=== PATIENT | male | born 1975 | race Caucasian/White ===

== ENCOUNTER 2024-08-05 08:12 | Outpatient (CLI) | payer OTHER, SELFPAY ==
--- NOTE | ~2024-08-05 | CT_ITS ---
CT Scan of the Chest without Contrast: Clinical Indication: Cough Technique: Contiguous sections were acquired throughout the chest without intravenous contrast. Dose reduction technique was used on this scan by utilizing automated exposure control and iterative recon struction technique. The dose-length product (DLP) was 720.16 mGy-cm. Findings: There is no evidence of any significant mediastinal, hilar or axillary lymphadenopathy. The mediastin al soft tissues appear normal. There is no evidence of pleural or pericardial effusion. The lungs are clear. No pulmonary nodules or infiltrates are noted. Images through the upper abdomen reveal no abnormalities. Impression: No significant abnormalities seen. Reviewed, dictated and finalized at location . Impression: No significant abnormalities seen.
== END 2024-08-05 08:13 | disposition home or self-care (01) ==
LOC: MICIMG 08:13
PROVIDERS: PCP Student in an Organized Health Care Education/Training Program; Visit Provider Student in an Organized Health Care Education/Training Program
DX: R05.3 Chronic cough (principal)
CPT/HCPCS: 71250

== ENCOUNTER 2025-04-11 12:20 | Emergency (ER) | payer OTHER, SELFPAY ==
--- OUTSIDE RECORDS SUMMARY | 2025-04-11 12:22 | XMS_ITS | Clinical Summary ---
Author Organization [facility] Address [address] [place] [address] Care Team Providers Care Brewing Director Name Role Phone Jean Gao DO Primary Care Provider + Allergies No known active allergies Medications aspirin EC 81 MG tablet Take 1 tablet (81 mg total) by mouth daily. 02/06/2017 Active Multiple Vitamin (MULTIVITAMIN) capsule Take 1 capsule by mouth daily. 02/06/2017 Active Cholecalciferol (VITAMIN D) 50 MCG (2000 UT) Tab Take 1 Can by mouth daily. Active Ascorbic Acid (VITAMIN C) 100 MG tablet Take 1 tablet (100 mg total) by mouth daily. Active rosuvastatin (CRESTOR) 10 MG tabletIndicatio ns:Hyperlipidem ia TAKE 1 TABLET NIGHTLY AT BEDTIME 90 tablet 3 07/18/2024 Active Active Problems Problem Noted Date Diagnosed Date NICK (obstructive sleep apnea) 06/12/2022 BMI 31.0-31.9,adult 03/07/2019 Dyslipidemia 02/06/2017 Seasonal allergies 02/06/2017 Discoloration of skin 01/30/2016 Hemoptysis 01/30/2016 Hereditary thrombophilia 01/30/2016 Hyperlipidemia 01/30/2016 Lateral epicondylitis 01/30/2016 Pulmonary nodules 01/30/2016 Resolved Problems Problem Noted Date Diagnosed Date Resolved Date Encounter for screening for respiratory tuberculosis 01/30/2016 02/13/2020 Encounters Date Type Department Care Team Description 04/11/2025 Telephone [facility] Family & Internal Medicine [address] [phone] Jean Gao DO Medication Request 03/23/2025 Telephone [facility] Family & Internal Medicine [address] [phone] Jean Gao, DO Medication Request from Last 3 Months Immunizations Immunization Administration Dates Next Due Tdap (Adacel) 05/07/2021 Family History Medical History Relation Comments Elevated PSA Father Hypertension Father Cancer Paternal Grandfather prostate Heart Disease Paternal Grandfather Relation Status Comments Father Paternal Grandfather Social History Tobacco Use Types Packs/Day Years Used Date Smoking Tobacco: Former Cigarettes 1.5 20 0 04/20/1992 - 04/20/2012 Smokeless Tobacco: Current Chew Tobacco Cessation:Ready to Q uit: No; Counseling Given: Yes Comments:Provider to drug counselor Alcohol Use Standard Drinks/Week Comments Yes 33.3 (1 standard drink = 0.6 oz pure alcohol) 2-3 times weekly PHQ-2 Answer Date Recorded Patient Health Questionnaire-2 Score 0 05/20/2024 Sex and Gender Information Value Date Recorded Sex Assigned at Male 05/20/2024 8:33 AM NUTRITION INTERN Legal Sex Male 5:29 PM CDT Gender Identity Male 05/20/2024 8:33 AM NUTRITION INTERN Sexual Orientation Not on file Last Filed Vital Signs Vital Sign Reading Time Taken Comments Blood Pressure 124/88 07/15/2024 8:11 AM CDT Pulse 64 07/15/2024 8:11 AM CDT Temperature 36.3 C (97.3 F) 07/15/2024 8:11 AM CDT Respiratory Rate 16 07/15/2024 8:11 AM CDT Oxygen Saturation 98% 07/15/2024 8:11 AM CDT Inhaled Oxygen Concentration - - Weight 119.2 kg (262 lb 12.8 oz) 07/15/2024 8:11 AM CDT Height 185.4 cm (6' 1) 07/15/2024 8:11 AM CDT Body Mass Index 34.67 07/15/2024 8:11 AM CDT Plan of Treatment Health Maintenance Due Date Last Done Comments Hepatitis B Vaccines (1 of 3 - 19+ 3-dose series) 1993 Annual Physical 06/12/2023 06/12/2022, 04/20, 02/10/2020, Additional history exists Lung Cancer Screening 2024 Pneumococcal Vaccine: 50+ Years (1 of 1 - PCV) 2024 Zoster Vaccines (1 of 2) 2024 Influenza Adult (#1) 2025 Colorectal Cancer Screening FIT-DNA (3 Years) 06/17/2027 06/17/2024, 06/17/2024, 05/20/2021, Additional history exists DTaP, Tdap and Td Vaccines (2 - Td or Tdap) 05/07/2031 05/07/2021 COVID-19 Vaccine (2 - season) 2074 09/24/2020 Postponed from 12/19/2024 (Patient Refused) Hepatitis C Completed 05/07/2021 PHQ-2 (Physician [place]) Completed 05/20/2024 Hepatitis A Vaccines Aged Out No long er eligible based on patient's age to complete this topic Meningococcal B Vaccine Aged Out No l onger eligible based on patient's age to complete this topic Meningococcal Vaccine Aged Out No dillon deidra eligible based on patient's age to complete this topic RSV Immunizations Under 20 Months Aged Out No longer eligible based on patient's age to complete this topic Procedures Procedure Name Priority Date/Time Associated Diagnosis Comments COLOGUARD (EXACT SCIENCE) Routine 06/17/2024 2:15 AM NUTRITION INTERN Screening for malignant neoplasm of colon HEPATITIS C ANTIBODY Routine 05/07/2021 8:29 AM NUTRITION INTERN Need for hepatitis C screening test from Last 3 Months or Most Recently Relevant to Health Maintenance Results * COLOGUARD (EXACT SCIENCE) (06/17/2024 2:15 AM NUTRITION INTERN) COLOGUARD RESULT Negative Negative [facility] (CLIA #:[id number]) Comment: NEGATIVE TEST RESULT. A negative Cologuard result indicates a low likelihood that a colorectal cancer (CRC) or advanced adenoma (adenomatous polyps with more advanced pre-malignant features) is present. The chance that a person with a negative Cologuard test has a colorectal cancer is less than 1 in 1500 (negative predictive value >99.9%) or has an advanced adenoma is less than 5.3% (negative predictive value 94.7%). These data are based on a prospective cross-sectional study of 10,000 individuals at average risk for colorectal cancer who were screened with both Cologuard and colonoscopy. (Stephan Rodriguez al, N Engl J Med 2014;370(77):0945-3202) The normal value (reference range) for this assay is negative. COLOGUARD RE-SCREENING RECOMMENDATION: Periodic colorectal cancer screening is an important part of preventive healthcare for asymptomatic individuals at average risk for colorectal cancer. Following a negative Cologuard result, the [place] [employer] Society and U.S. Multi-Society Task Force screening guidelines recommend a Cologuard re-screening interval of 3 years. References: [place] [employer] Guideline for Colorectal Cancer Screening: https://www.cancer.org/cancer/zqckn-snligy-yjfwca/ygdeqzinl-kddamtwhe-ohetajn/ac s-rec ommendations.html.; Evangelista DK, Barron BARILLAS, Margaret CardozaK, Colorectal Cancer Screening: Recommendations for Physicians and Patients from the U.S. Multi-Society Task Force on Colorectal Cancer Screening , Am J Gastroenterology 2017; 112:5830-7981. TEST DESCRIPTION: Composite algorithmic analysis of stool DNA-biomarkers with hemoglobin immunoassay. Quantitative values of individual biomarkers are not reportable and are not associated with individual biomarker result reference ranges. Cologuard is intended for colorectal cancer screening of adults of either sex, 45 years or older, who are at average-risk for colorectal cancer (CRC). Cologuard has been approved for use by the U.S. FDA. The performance of Cologuard was established in a cross sectional study of average-risk adults aged 50-84. Cologuard performance in patients ages 45 to 49 years was estimated by sub-group analysis of near-age groups. Colonoscopies performed for a positive result may find as the most clinically significant lesion: colorectal cancer [4.0%], advanced adenoma (including sessile serrated polyps greater than or equal to 1cm diameter) [20%] or non- advanced adenoma [31%]; or no colorectal neoplasia [45%]. These estimates are derived from a prospective cross-sectional screening study of 10,000 individuals at average risk for colorectal cancer who were screened with both Cologuard and colonoscopy. (Stephan Valero, N Engl J Med 2014;370(14):1552-2340.) Cologuard may produce a false negative or false positive result (no colorectal cancer or precancerous polyp present at colonoscopy follow up). A negative Cologuard test result does not guarantee the absence of CRC or advanced adenoma (pre-cancer). The current Cologuard screening interval is every 3 years. ([place] [employer] and U.S. Multi-Society Task Force). Cologuard performance data in a 10,000 patient pivotal study using colonoscopy as the reference method can be accessed at the following location: www.[employer]/results. Additional description of the Cologuard test process, warnings and precautions can be found at www.cologuard.com. STOOL STOOL SPECIMEN / Unknown 06/17/2024 2:15 AM NUTRITION INTERN 06/19/2024 10:12 PM NUTRITION INTERN Jean Gao DO BODY FLUIDS AND STOOLS O RDERABLES Final Result Performing Organization Address [facility] de Phone Number [facility], [facility] [address] [place] [address], [facility] (CLIA #:[id number]) [address] [place] [address] * HEPATITIS C ANTIBODY (05/07/2021 8:29 AM NUTRITION INTERN) HEPATITIS C AB NON-REACTI VE NON-REACT TRAVON 05/07/2021 10:59 PM NUTRITION INTERN [facility] Comment: ANTIBODIES TO HCV NOT DETECTED. DOES NOT EXCLUDE THE POSSIBILITY OF EXPOSURE TO HCV. 05/07/2021 8:29 AM NUTRITION INTERN Jean Gao DO LABORATORY Final Re sult Performing Organization Address [facility] Co de Phone Number [facility] [address] [place] [address], [place] [phone] from Last 3 Months or Most Recently Relevant to Health Maintenance Insurance [employer] Care Teams Brewing Director Relationship Specialty Start Date End Date Jean Gao DO [address] [place] [id number] PCP - General FAMILY PRACTICE 03/07/19
--- OUTSIDE RECORDS SUMMARY | 2025-04-11 12:22 | XMS_ITS | Encounter Summary ---
Author Organization [facility] Address [address] [place] [address] Care Team Providers Care Toter Name Role Phone Jean Gao DO Primary Care Provider + Reason for Visit * Reason Onset Date Comments Medication Request 04/11/2025 Encounter Details Date Type Department Care Team (Late st Contact Info) Description 04/11/2025 Telephone [facility] Family & Internal Medicine [facility] [address] [place] [address] Jean Gao DO [address] [place], [place] [id number] Medication Request Social History Tobacco Use Types Packs/Day Years Used Date Smoking Tobacco: Former Cigarettes 1.5 20 0 04/20/1992 - 04/20/2012 Smokeless Tobacco: Current Chew Comments:Provider to director of counseling Alcohol Use Standard Drinks/Week Comments Yes 33.3 (1 standard drink = 0.6 oz pure alcohol) 2-3 times weekly PHQ-2 Answer Date Recorded Patient Health Questionnaire-2 Score 0 05/20/2024 Sex and Gender Information Value Date Recorded Sex Assigned at Male 05/20/2024 8:33 AM POCKET ASSEMBLER Legal Sex Male 5:29 PM CDT Gender Identity Male 05/20/2024 8:33 AM POCKET ASSEMBLER Sexual Orientation Not on file documented as of this encounter Progress Notes * Arianna Garcia MA - 04/11/2025 11:16 AM CST Spoke with patient and informed him of recommendation by PCP. Pt v/u and did not have questions. ET ASSEMBLER * Jean Gao DO - 04/11/2025 9:50 AM CST Would have to recommend urgent care if he doesn't wish to come in and/or we have no openings. ET ASSEMBLER * Shaye Muñiz - 04/11/2025 8:24 AM CST Patient has been sick for 3 weeks was getting better but now its coming back. He is flying out of town Thursday and is requesting some meds to help. (Symptoms-sore throat,coughing, headache,ear pressure.) Took COVID test two weeks ago negative. OTC meds-nyquil. I offered for him to be seen tomorrow morning and he really don't think he needs to be seen just would like something to be called in. Junior chaparro. [id number] [place], [place] - [address] [place] [address] [address] ET ASSEMBLER documented in this encounter Plan of Treatment Not on file documented as of this encounter Visit Diagnoses Not on filedocumented in this encounter Additional Health Concerns Assessment Noted Time PHQ-9 Depression Total Score: 0 05/07/19 22 7:29 AM POCKET ASSEMBLER documented as of this encounter Care Teams Toter Relationship Specialty Start Date End Date Jean Gao DO [address] [place] [id number] PCP - General FAMILY PRACTICE 03/07/19 documented as of this encounter
[2025-04-11 12:25] VITALS: BP 135/76; PULSE 93; RESP 16; TEMP 36.2; O2SAT 96
--- NOTE | 2025-04-11 12:37 | ED_ITS ---
HPI - URI/Sore Throat General Chief Complaint: Upper Respiratory Infection Stated Complaint: Cold Like Source: patient Mode of arrival: ambulatory Limitations: no limitations History of Present Illness HPI Narrative: this is a pleasant 49-year-old male patient presents to the urgent care with complaints of sinus pressure, sinus drainage, headache, cough and scratchy sore throat that has been ongoing now for 3 weeks. He has been taking OTC medications including nasal sprays, and cold medications with no full relief of symptoms. Patient denies any nausea or vomiting or diarrhea. He denies any chest pain or shortness of breath. MD elicited complaint: fever, cough, sore throat, rhinorrhea, nasal congestion and sinus pain Onset (ago): week(s) (3) Consistency: constant Severity: mild Description of mucous: green Able to tolerate fluids by mouth: Yes Exacerbating factors: nothing Relieving factors: nothing Context: sick contacts Associated symptoms: denies other symptoms Treatments prior to arrival: acetaminophen and cold medicine Related Data Allergies Allergy/AdvReac Type Severity Reaction Status Date / Time No Known Allergies Allergy Verified 04/11/25 12:24 Review of Systems Review of Systems: All systems reviewed & are unremarkable except as noted in HPI and below Exam Const: General: ill appearing Nutritional Appearance: well nourished Orientation/consciousness: patient oriented x3 Limitations: no limitations HENMT: Head: normal to inspection Ears: TM abnormal bulging Face/Nose/Sinus: Nasal discharge present purulent and mucoid Face and sinus: sinus tenderness frontal and maxillary Mouth: Yes Normal oral and palatal mucosa present Teeth and gingiva: dentition normal Throat: posterior oropharynx normal Eyes: Conjunctivae: conjunctivae normal Pupils: Equal, round and reactive pupils present EOM: EOMs intact bilaterally Direct Ophthalmoscopy: no phot ophobia Neck: Neck: normal visual inspection and no lymphadenopathy Chest: Chest palpation & inspection: normal inspection of the chest Resp: Effort & Inspection: normal respiratory effort Auscultation: clear to auscultation bilaterally Cardio: Rate: regular rate Rhythm: regular rhythm GI: GI Palp: Yes Soft to palpation Auscultation: normal bowel sounds Skin: General skin exam: normal color Rashes: no rashes Wounds: no wounds Neuro: General: patient oriented x3, moves all extremities, no meningeal signs, no focal motor deficits and CN's II-XI intact bilaterally Cranial nerves: Yes Nystagmus not present Speech: normal speech Gait exam (Neuro): Normal gait present Extrem: General: normal to inspection and no clubbing, cyanosis or edema Psych: Mental Status: mental status grossly normal Affect: normal affect Attitude: cooperative Course Course Emergency Course: this is a pleasant 49-year-old male patient presents to the urgent care with complaints of sinus pressure, sinus drainage, headache, cough and scratchy sore throat that has been ongoing now for 3 weeks. He has been taking OTC medications including nasal sprays, and cold medications with no full relief of symptoms. Patient denies any nausea or vomiting or diarrhea. He denies any chest pain or shortness of breath. vitals stable edcated on exam findings, symptom range and management. discussed treatment options and out patient follow up. educated the patient to Increase fluids, rest, symptomatic management: - cough and cold medication per package instructions- cough drops for sore throat and cough- vicks vapor rub- tylenol and motrin for fever and body aches, - soft bland foods. continue with antibiotic as prescribed continue with prednisone as prescribed ?follow-up with primary care chronic 2-3 days for further evaluation and exam. Level of Care: Express Care Visit Vital Signs Vital signs: Vital Signs Temperature 97.2 F L 04/11/25 12: Pulse Rate 93 04/11/25 12: Respiratory Rate 16 04/11/25 12:25 Blood Pressure 135/76 04/11/25 12:25 Pulse Oximetry 96 04/11/25 12:25 Oxygen Delivery Room Air 04/11/25 12:25 Temperature 97.2 F L 04/11/25 12:25 Pulse Rate 93 04/11/25 12:25 Respiratory Rate 16 04/11/25 12:25 Blood Pressure 135/76 04/11/25 12:25 Pulse Oximetry 96 04/11/25 12:25 Oxygen Delivery Room Air 04/11/25 12:25 [facility] Narrative Medical decision making narrative: this is a pleasant 49-year-old male patient presents to the urgent care with complaints of sinus pressure, sinus drainage, headache, cough and scratchy sore throat that has been ongoing now for 3 weeks. He has been taking OTC medications including nasal sprays, and cold medications with no full relief of symptoms. Patient denies any nausea or vomiting or diarrhea. He denies any chest pain or shortness of breath. vitals stable edcated on exam findings, symptom range and management. discussed treatment options and out patient follow up. educated the patient to Increase fluids, rest, symptomatic management: - cough and cold medication per package instructions- cough drops for sore throat and cough- vicks vapor rub- tylenol and motrin for fever and body aches, - soft bland foods. continue with antibiotic as prescribed continue with prednisone as prescribed ?follow-up with primary care chronic 2-3 days for further evaluation and exam. Differential Diagnosis Differential Diagnosis: sinusititis, uri Medical Records I have reviewed the following patient records and this information was taken into consideration when formulating the assessment and plan.: previous clinic visits Discharge Plan Discharge Clinical Impression: Sinusitis Qualifiers: Sinusitis location: unspecified location Chronicity: acute Recurrence: non- recurrent Qualified Code(s): J01.90 - Acute sinusitis, unspecified Patient Disposition: Home Condition: Stable Instructions: Antibiotic Form, Sinusitis (ED) Additional Instructions: Increase fluids rest symptomatic management: - cough and cold medication per package instructions - cough drops for sore throat and cough - vicks vapor rub - tylenol and motrin for fever and body aches - soft bland foods continue with antibiotic as prescribed continue with prednisone as prescribed ?follow-up with primary care chronic 2-3 days for further evaluation and exam Patient Language: Hungarian Prescriptions: New azithromycin 250 mg tablet See Rx Instructions .ROUTE .COMPLEX Qty: 6 0RF Rx Instructions: For 250 mg dose pack: take 500 mg today (day 1), then 250 mg for 4 days (days 2-5) prednisone 20 mg tablet 20 mg PO BID Qty: 10 0RF Follow-up/Referrals: Sima,DO Jean [Primary Care Provider] Time of Disposition: 12:40
== END 2025-04-11 12:43 | disposition home or self-care (01) ==
PROVIDERS: Emergency Provider Nurse Practitioner Family; PCP Student in an Organized Health Care Education/Training Program
DX: J01.90 Acute sinusitis, unspecified (principal)
CPT/HCPCS: 99203; G0463